=== PATIENT | female | born 1990 | race African-American/Black ===

== ENCOUNTER 2020-10-24 05:22 | Observation (INO) | payer SELFPAY ==
[~2020-10-24] VITALS: Ht 170.2 cm; Wt 105.2 kg
[2020-10-24] MEDS ORDERED: IV RINGERS,LACTATED 1000ML 1,000 ML IV SCH (05:30)
[2020-10-24] MEDS ORDERED: ONDANSETRON PF 4 MG/2 ML VIAL. IVP PRN (05:30)
[2020-10-24] MEDS ORDERED: ACETAMINOPHEN 325 MG TABLET. PO PRN (05:30)
[2020-10-24 05:54] LABS: BARBITURATES NEG (NEG); BENZODIAZEPINES NEG (NEG); CANNABINOIDS NEG (NEG); COCAINE NEG (NEG); METHADONE NEG (NEG); OPIATES NEG (NEG); PHENCYCLIDINE NEG (NEG)
[2020-10-24 05:55] LABS: AMPHETAMINE/METHAMPHETAMINE NEG (NEG)
--- NOTE | 2020-10-24 07:05 | RAD ---
INDICATION: Reason: PT No PNC? Gestational Age COMPARISON: None. FINDINGS: Focused limited ultrasound images are obtained through the uterus. Intrauterine is identified. heartbeat is seen at 141. The amniotic fluid index is low at 2.6. Cephalic presentation at time of exam. Cervix is obscured. Placenta is anterior. Biparietal diameter 93 mm, 37 weeks 6 day. Head circumference 339 mm, 39 weeks 0 day. Abdominal circu mference 352 mm, 39 week 1 day. Femur length 79 mm, 40 week 3 day. Estimated weight 3724 g. HC/AC 0.96 IMPRESSION: * Intrauterine is identified with estimated gestational age of 39 weeks and 1 day. Positi ve heartbeat is seen. There is a low amniotic fluid index at 2.6. Electronically signed by: Kartik Larose MD (10/24/2020 7:02 AM) [id number]
== END 2020-10-24 06:43 | disposition left against medical advice (07) ==
LOC: 3 SO LND 05:22
PROVIDERS: ADMIT Obstetrics & Gynecology; ATTEND Obstetrics & Gynecology
DX: O42.92 Full-term premature rupture of membranes, unspecified as to length of time between rupture and onset of labor (principal); O26.893 Other specified pregnancy related conditions, third trimester; M25.559 Pain in unspecified hip; Z3A.39 39 weeks gestation of pregnancy; Z79.899 Other long term (current) drug therapy
CPT/HCPCS: 59025; 76815; 80307; G0378; G0379